=== PATIENT | male | born 1990 | race Caucasian/White ===

== ENCOUNTER 2022-09-18 15:08 | Emergency (ER) | payer SELFPAY ==
[~2022-09-18] VITALS: Ht 188 cm; Wt 77.1 kg
[2022-09-18 15:24] VITALS: BP 112/70; TEMP 98.2
--- NOTE | 2022-09-18 15:24 | NUR ---
BIBS STATING THAT HE WAS X RAYS, HAD PREVIOUS FRACTURE ON HIS L CLAVICLE AND 4 RIBS ON HIS L SIDE. VITALS ARE WITHIN NORMAL LIMITS. AWAITING MD RODGERS.
--- NOTE | 2022-09-18 16:47 | NUR ---
DR PATEL AT BED SIDE.
--- NOTE | 2022-09-18 18:42 | NUR ---
PER PATIENT REQUEST ,X RAY CD HAND OVER TO PATIENT.
[2022-09-18 18:43] VITALS: O2SAT 98
--- NOTE | 2022-09-18 18:44 | NUR ---
Patient discharged to home in stable condition. Written and verbal after care instructions given. Patient verbalizes understanding of instruction.
== END 2022-09-18 18:44 | disposition home or self-care (01) ==
LOC: ER 15:15
DX: S42.002D Fracture of unspecified part of left clavicle, subsequent encounter for fracture with routine healing (principal); V94.89XD Other water transport accident, subsequent encounter
CPT/HCPCS: 71045-TC